=== PATIENT | male | born 1940 | race Caucasian/White ===

== ENCOUNTER 2017-02-09 08:19 | Day surgery (SDC) | payer MEDICARE, OTHER ==
[2017-02-05 11:57] VITALS: BMI 35.6
[~2017-02-09 08:19] MED LIST: LACTATED RINGERS 1,000 ML IV SCH
[2017-02-09] MEDS: PHENYLEPHRINE 10% OPHTH DROPS 5 ML BTL OP ONE ×3 (08:40→09:00)
[2017-02-09] MEDS: CYCLOPENTOLATE 1% OPHTH SOLN 2 ML BTL OP ONE ×3 (08:43→09:03)
[2017-02-09 08:45] VITALS: RESP 16; TEMP 97.3
[2017-02-09] MEDS: FLURBIPROFEN 0.03% OPHTH DROPS 2.5 ML BTL OP ONE ×3 (08:46→09:06)
[2017-02-09] MEDS ORDERED: PROPOFOL 10 MG/ML 20 ML VIAL IV ONE (09:19)
[2017-02-09] MEDS: BUPIVACAINE (PF) 0.75% 5 ML, LIDOCAINE 4% (PF) 5 ML, HYALURONIDASE, HUMAN RECOMB 150 UNIT MISCELLANE ONE ×6 (09:21→09:25)
[2017-02-09] MEDS: TIMOLOL 0.5% OPHTH SOLN (PF) 0.2 ML DROPERETTE OP ONE ×2 (09:21→09:26)
[2017-02-09] MEDS: GENTAMICIN/PREDNISOL AC OPHTH OINT 3.5GM OPHTHALMIC ONE ×2 (09:21→09:26)
[2017-02-09] MEDS ORDERED: HYALURONATE SODIUM INTRAOCULAR 1 EACH SYRINGE (10MG/ML) INTRAOCULA ONE ×2 (09:22→09:26)
[2017-02-09] MEDS ORDERED: BALANCED SALT IRRIG SOLN COMB2 15 ML IRRIG.SOLN INTRAOCULA ONE ×2 (09:22→09:26)
[2017-02-09] MEDS ORDERED: EPINEPHrine (PF) 0.5 ML in BALANCED SALT IRRIG SOLN COMB2 500 ML IRRIGATION ONE (09:22)
--- NOTE | 2017-02-09 09:42 | P.OP ---
Date of Procedure: 02/09/17 Procedure(s) Performed: PREOPERATIVE DIAGNOSIS: Cataract, left eye. POSTOPERATIVE DIAGNOSIS: Cataract, left eye. OPERATION: Phacoemulsification cataract, left eye. DESCRIPTION OF PROCEDURE: The patient was taken to the preoperative holding area. Intravenous Propofol was given so as to bring about adequate sedation. The following mixture was given for local anesthesia: 5 mL of 2% lidocaine, 5 mL of 0.75% Marcaine, and 1 mL of Wydase. Approximately 4 mL was injected in the retrobulbar space of the surgical eye. Additional 1 mL was then directed to the temporal area of the surgical eye. This was performed to allow adequate neurological block of the facial muscles. The patient was revived and then taken into the operative room. The patient was prepped and draped in the usual sterile manner for the operative eye. A lid speculum was put into position. The conjunctiva was resected back from the limbus in the 12 o'clock position. Bleeding was controlled with electrocautery. A #69 blade was then used and a half-thickness scleral incision approximately 1-mm posterior to the limbus was made on bare sclera. This was shelved in the clear cornea using a crescent knife. Next a 15-degree blade was used to make a stab incision at the 3 o' clock position at the corneolimbal interface. Keratome blade was then used and the superior wound was extended into the anterior chamber. Viscoelastic was injected into the anterior chamber and to maintain its form. Next, a cystotome was used and a continuous anterior capsulotomy was made without difficulty. Hydrodissection using a blunt cannula and BSS was performed. Phaco probe was then employed and a groove extending from 12 to 6 o'clock in the lens was created. A Dio wand was used through the stab incision so as to perform a divide and conquer technique. Next an irrigation aspiration probe was utilized and any residual cortex was removed from the eye. Again, viscoelastic was injected into the anterior chamber. An Fredo posterior chamber lens implant was placed in the cartridge and injected into the anterior chamber without difficulty. The SinLoladexey hook was utilized to spin the lens into position and this was again performed without any difficulty. The irrigation and aspiration probe was again employed and any residual viscoelastic was removed from the eye. Then BSS was injected into the limbal stab incision and the anterior chamber re-inflated. The conjunctiva was reapproximated using electrocautery. One drop of 0.25% Timoptic was placed over the corneal along with TobraDex ophthalmic ointment. Two sterile patches and a Gaines eye shield were taped into position. The patient was transported to the recovery room in stable condition. Pathology: none sent Condition: stable Disposition: same day
[2017-02-09 09:58] VITALS: BP 128/79; PULSE 68
== END 2017-02-09 10:26 | disposition home or self-care (01) ==
LOC: OR 08:19
PROVIDERS: ATTEND Ophthalmology
DX: H25.12 Age-related nuclear cataract, left eye (principal); H40.059 Ocular hypertension, unspecified eye; I10 Essential (primary) hypertension; K21.9 Gastro-esophageal reflux disease without esophagitis; E66.01 Morbid (severe) obesity due to excess calories; Z79.82 Long term (current) use of aspirin; Z79.899 Other long term (current) drug therapy; Z88.5 Allergy status to narcotic agent
CPT/HCPCS: 66984; V2632; J2001; J3470; J0171; J2704

== ENCOUNTER → 2017-12-16 | Outpatient (CLI) | payer MEDICARE ==
--- NOTE | 2017-12-17 07:12 | US ---
EXAMINATION TYPE: US prostate transrectal DATE OF EXAM: 12/16/2017 COMPARISON: NONE CLINICAL HISTORY: R97.20 Elevate Prostate. This examination was performed using the transrectal probe. EXAM MEASUREMENTS: Gland Size: 5.7 x 3.6 x 5.6 Volume: 58.64 Predicted PSA: 7.04 Focal hypoechoic nodule is seen within the left prostate gland appearing at mid gland measuring 1.3 x 0.9 x 0.9 cm. This contains internal vascularity and is partially exophytic. Overall the gland is he terogenous containing central zone calcifications and central zone well-circumscribed nodules charact eristic of benign prostatic hyperplasia. IMPRESSION: 1. Moderately suspicious focal hypoechoic nodule within the left lateral prostate gland appearing at the midportion of the gland measuring 1.3 cm. Further evaluation with biopsy or MRI is recommended. 2. Enlarged and heterogenous prostate gland with central zone findings characteristic of benign prost atic hyperplasia.
== END | disposition home or self-care (01) ==
LOC: RADUSMAIN 08:45
PROVIDERS: ATTEND Urology
DX: N40.0 Benign prostatic hyperplasia without lower urinary tract symptoms (principal); N40.2 Nodular prostate without lower urinary tract symptoms
CPT/HCPCS: 76872

== ENCOUNTER → 2018-01-25 | Outpatient (CLI) | payer MEDICARE ==
[2018-01-25 07:33] LABS: Blood Urea Nitrogen 20 mg/dL (9-20)
--- NOTE | 2018-01-25 11:28 | NM ---
EXAMINATION TYPE: NM bone scan whole body DATE OF EXAM: 01/25/2018 COMPARISON: NONE HISTORY: Prostate cancer Delayed whole-body scanning was performed following the injection of 22.0 mCi Tc 99m MDP. Images acq uired 3 hours post injection. FINDINGS: Abnormal uptake is seen involving the lower cervical, thoracic spine, and throughout the lumbar spine . Abnormal uptake involving the feet, ankles, knees and shoulders appears post arthritic. Abnormal uptake involving the mandible suggesting periodontal disease. IMPRESSION: Abnormal uptake involving the lumbar spine is compared to a CT scan of 01/25/2018 appears to be degener ative. 2. Abnormal uptake involving the lower cervical and throughout the thoracic spine is nonspecific with no x-ray correlation available. Recommend x-ray correlation.
--- NOTE | 2018-01-25 11:55 | CT ---
EXAMINATION TYPE: CT abdomen pelvis w con DATE OF EXAM: 01/25/2018 COMPARISON: NONE HISTORY: neoplasm of prostate CT DLP: 1572 mGycm Automated exposure control for dose reduction was used. TECHNIQUE: Helical acquisition of images was performed from the lung bases through the pelvis. CONTRAST: Performed with Oral Contrast and with IV Contrast, patient injected with 100 mL of Isovue 300. FINDINGS: LUNG BASES: No significant abnormality is appreciated. LIVER/GB: Gallbladder is surgically absent. No discrete hepatic lesions or intrahepatic biliary ducta l dilatation. PANCREAS: No pancreatic ductal dilatation. Pancreatic parenchyma is unremarkable. SPLEEN: No significant abnormality is seen. ADRENALS: No nodules or thickening. KIDNEYS: Exophytic left lower pole renal cyst is seen measuring 2.2 cm and focal cortical defect of t he right kidney laterally is likely from prior injury. Nonspecific bilateral perinephric fat strandin g is present. FREE AIR: No free air is visualized. ADENOPATHY: There is a cluster of nonenlarged lymph nodes in the region left periaortic region measu ring up to 7 mm in short axis. Nonenlarged lymph nodes are also seen along the left common iliac cullen n. What appears to be a venous varix rather than an internal chain left iliac lymph node is seen on s eries 3 image 67 and coronal images 78 through 74. REPRODUCTIVE ORGANS: The known prostate carcinoma is not definitively seen on CT. Right seminal vesic le is slightly larger than the left, possible anatomic variation. Central zone calcifications are inc identally noted. URINARY BLADDER: No significant abnormality is seen. OSSEOUS STRUCTURES: Levoscoliosis of the lumbar spine is present. There is grade 1 anterolisthesis o f L4 and L5, likely degenerative in nature. Mild multilevel degenerative changes of the lumbar spine are noted without suspicious osseous lesion. BOWEL: There is a small hiatal hernia present. 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 Numerous sigmoid diverticula are noted without pericolonic fat stranding. Appendix is air-filled and within normal limits. OTHER: Abdominal aorta is of normal course and caliber with minimal calcific atheromatous changes. Th ere is a small fat filled periumbilical hernia seen. IMPRESSION: NO EVIDENCE OF OSSEOUS OR VISCERAL METASTASIS. NO DEFINITIVE EVIDENCE OF ADENOPATHY ALTHOUGH MULTIPLE PROMINENT BUT NONENLARGED PERIAORTIC LYMPH NODES ARE SEEN IN THE LEFT MEASURING UP TO 7 MM.
== END | disposition home or self-care (01) ==
LOC: RADCTMAIN 06:51
PROVIDERS: ATTEND Radiology Radiation Oncology
DX: C61 Malignant neoplasm of prostate (principal); R94.8 Abnormal results of function studies of other organs and systems
CPT/HCPCS: 82565; 84520; 74177; 36415; 78306; A9503; Q9967

== ENCOUNTER → 2018-01-27 | Outpatient (CLI) | payer MEDICARE ==
--- NOTE | 2018-01-27 11:36 | XR ---
EXAMINATION TYPE: XR chest 2V DATE OF EXAM: 01/27/2018 COMPARISON: NONE TECHNIQUE: PA and lateral views submitted. HISTORY: Prostate cancer FINDINGS: The lungs are clear and there is no pneumothorax, pleural effusion, or focal pneumonia. Hypertrophi c changes of the spine. Surgical clips in the abdomen noted. No overt failure. Atherosclerotic change of the aorta. IMPRESSION: 1. No acute process.
[2018-01-27 12:48] LABS: ALT 27 U/L (21-72); AST 26 U/L (17-59); Albumin 3.9 g/dL (3.5-5.0); Alkaline Phosphatase 56 U/L (38-126); Anion Gap 14 mmol/L; Blood Urea Nitrogen 18 mg/dL (9-20); Calcium 9.5 mg/dL (8.4-10.2); Carbon Dioxide 25 mmol/L (22-30); Chloride 105 mmol/L (98-107); Glucose 106 mg/dL (74-99); Potassium 4.4 mmol/L (3.5-5.1); Sodium 144 mmol/L (137-145); Total Bilirubin 0.6 mg/dL (0.2-1.3); Total Protein 6.6 g/dL (6.3-8.2)
[2018-01-27 13:24] LABS: HCT 50.6 % (39.0-53.0); HGB 16.8 gm/dL (13.0-17.5); MCH 32.1 pg (25.0-35.0); MCHC 33.3 g/dL (31.0-37.0); MCV 96.5 fL (80.0-100.0); Platelet Count 224 k/uL (150-450); RBC 5.24 m/uL (4.30-5.90); RDW 13.1 % (11.5-15.5); WBC 7.1 k/uL (3.8-10.6)
[2018-01-27 15:07] LABS: Lymphocytes # (M) 1.92 k/uL (1.0-4.8); Monocytes # (M) 0.71 k/uL (0-1.0); Neutrophils # (M) 4.47 k/uL (1.3-7.7); Neutrophils % (M) 63 %; Nucleated Red Blood Cells 0 /100 WBC (0-0); Polychromasia Present; Total Cells Counted 100
== END | disposition home or self-care (01) ==
LOC: RADXRMAIN 11:13
PROVIDERS: ATTEND Radiology Radiation Oncology
DX: C61 Malignant neoplasm of prostate (principal); Z88.5 Allergy status to narcotic agent
CPT/HCPCS: 71046; 80053; 85025; 85027

== ENCOUNTER → 2018-06-29 | Outpatient (CLI) | payer MEDICARE | END | disposition home or self-care (01) | LOC: LABWHC1 10:29 | PROVIDERS: ATTEND Radiology Radiation Oncology | DX: C61 Malignant neoplasm of prostate (principal); Z00.6 Encounter for examination for normal comparison and control in clinical research program; Z87.891 Personal history of nicotine dependence | CPT/HCPCS: 36415; 84153 ==

== ENCOUNTER → 2018-11-25 | Outpatient (CLI) | payer MEDICARE | END | disposition home or self-care (01) | LOC: LABWHC1 12:40 | PROVIDERS: ATTEND Radiology Radiation Oncology | DX: Z00.6 Encounter for examination for normal comparison and control in clinical research program (principal); C61 Malignant neoplasm of prostate; Z87.891 Personal history of nicotine dependence | CPT/HCPCS: 36415; 84153 ==

== ENCOUNTER → 2019-02-23 | Outpatient (CLI) | payer MEDICARE | LOC: LABWHC1 11:56 | PROVIDERS: ATTEND Radiology Radiation Oncology | DX: C61 Malignant neoplasm of prostate (principal); Z92.3 Personal history of irradiation; Z00.6 Encounter for examination for normal comparison and control in clinical research program; Z87.891 Personal history of nicotine dependence | CPT/HCPCS: 36415; 84153 ==

== ENCOUNTER → 2019-05-26 | Outpatient (CLI) | payer MEDICARE | END | disposition home or self-care (01) | LOC: LABWHC1 11:24 | PROVIDERS: ATTEND Radiology Radiation Oncology | DX: C61 Malignant neoplasm of prostate (principal); Z00.6 Encounter for examination for normal comparison and control in clinical research program; Z92.3 Personal history of irradiation; Z87.891 Personal history of nicotine dependence | CPT/HCPCS: 36415; 84153 ==

== ENCOUNTER → 2019-11-22 | Outpatient (CLI) | payer MEDICARE | END | disposition home or self-care (01) | LOC: LABWHC1 10:21 | PROVIDERS: ATTEND Radiology Radiation Oncology | DX: Z00.6 Encounter for examination for normal comparison and control in clinical research program (principal); C61 Malignant neoplasm of prostate; Z92.3 Personal history of irradiation; Z87.891 Personal history of nicotine dependence | CPT/HCPCS: 36415; 84153 ==

== ENCOUNTER → 2020-05-24 | Outpatient (CLI) | payer MEDICARE | END | disposition home or self-care (01) | LOC: LABWHC1 12:22 | PROVIDERS: ATTEND Radiology Radiation Oncology | DX: Z00.6 Encounter for examination for normal comparison and control in clinical research program (principal); Z08 Encounter for follow-up examination after completed treatment for malignant neoplasm; C61 Malignant neoplasm of prostate; Z85.46 Personal history of malignant neoplasm of prostate; Z92.3 Personal history of irradiation; Z87.891 Personal history of nicotine dependence | CPT/HCPCS: 36415; 84153 ==

== ENCOUNTER → 2020-11-25 | Outpatient (CLI) | payer MEDICARE | END | disposition home or self-care (01) | LOC: LABWHC1 11:38 | PROVIDERS: ATTEND Radiology Radiation Oncology | DX: C61 Malignant neoplasm of prostate (principal); Z85.46 Personal history of malignant neoplasm of prostate; Z92.3 Personal history of irradiation; Z87.891 Personal history of nicotine dependence; Z00.6 Encounter for examination for normal comparison and control in clinical research program; Z08 Encounter for follow-up examination after completed treatment for malignant neoplasm | CPT/HCPCS: 36415; 84153 ==

== ENCOUNTER → 2021-05-28 | Outpatient (CLI) | payer MEDICARE | END | disposition home or self-care (01) | LOC: LABWHC1 11:31 | PROVIDERS: ATTEND Radiology Radiation Oncology | DX: Z08 Encounter for follow-up examination after completed treatment for malignant neoplasm (principal); C61 Malignant neoplasm of prostate; Z92.3 Personal history of irradiation; Z87.891 Personal history of nicotine dependence | CPT/HCPCS: 36415; 84153 ==

== ENCOUNTER 2021-09-05 16:51 | Emergency (ER) | payer MEDICARE ==
[2021-09-05 17:46] VITALS: BP 189/95; PULSE 110; RESP 20; TEMP 98.5
[2021-09-05] MEDS ORDERED: GELATIN SPONGE,ABSORB (SMALL) 1 EACH SPONGE TOPICAL STA (19:33)
[2021-09-05] MEDS ORDERED: traMADol 50 MG STARTER PACK 3 TAB BTL PO STA (20:11)
--- NOTE | 2021-09-05 20:15 | ED ---
Wound/Laceration HPI - General Chief Complaint: Wound/Laceration Stated Complaint: Rt Hand Laceration Time Seen by Provider: 09/05/21 19:15 Source: patient, RN notes reviewed Mode of arrival: ambulatory Limitations: no limitations - History of Present Illness Initial Comments: She is a 81-year-old male presenting to the emergency Department with complaints of an injury to his right 2 fingers. Patient states he was using a mandolin to slice potatoes when he accidentally sliced the tips of his right second and third digits. Bleeding is controlled with active pressure and a bandage. He is not on blood thinners. He states his tetanus is up-to-date. He has no further complaints at this time. - Related Data Home Medications Medication Instructions Recorded Confirmed Aspirin [Adult Low Dose Aspirin EC] 81 mg PO DAILY 02/05/17 02/05/17 Enalapril Maleate [Vasotec] 20 mg PO DAILY 02/05/17 02/05/17 Ergocalciferol (Vitamin D2) 50,000 unit PO DAILY 02/05/17 02/05/17 [Vitamin D2] Multivitamin [Men's Multi-Vitamin] 1 each PO DAILY 02/05/17 02/05/17 Nizatidine [Axid] 150 mg PO DAILY 02/05/17 02/05/17 Allergies Allergy/AdvReac Type Severity Reaction Status Date / Time codeine AdvReac severe Verified 09/05/21 17:46 constipation Review of Systems ROS Statement: Those systems with pertinent positive or pertinent negative responses have been documented in the HPI. ROS Other: All systems not noted in ROS Statement are negative. Past Medical History Past Medical History: Hypertension History of Any Multi-Drug Resistant Organisms: None Reported Past Surgical History: Cholecystectomy Additional Past Surgical History / Comment(s): Bunions; replaced joint in L great toe; benign cyst on parotid gland; R Cataract Past Anesthesia/Blood Transfusion Reactions: No Reported Reaction Smoking Status: Never smoker Past Alcohol Use History: Rare Past Drug Use History: None Reported - Past Family History Mother Family Medical History: No Reported History General Exam - General Exam Comments Initial Comments: GENERAL: Patient is well-developed and well-nourished. Patient is nontoxic and in no acute distress. HEAD: Atraumatic, normocephalic. EYES: Pupils equal round and reactive to light, extraocular movements intact, sclera anicteric, conjunctiva are normal. Eyelids were unremarkable. LUNGS: Unlabored respirations. Breath sounds clear to auscultation bilaterally and equal. No wheezes rales or rhonchi. HEART: Regular rate and rhythm without murmurs, rubs or gallops. MUSCULOSKELETAL: Normal extremities with adequate strength and normal range of motion, no pitting or edema. No clubbing or cyanosis. NEUROLOGICAL: Patient is alert and oriented x 3. SKIN: Warm, Dry, normal turgor, no rashes. Patient has 2 small avulsion injuries, ~0.5cm to the tips of his second and third digits on the right hand. There is small nail involvement on the right middle finger. Bleeding is controlled with pressure in the bandage. Limitations: no limitations Course Vital Signs 09/05/21 17:44 Temperature 98.5 F Pulse Rate 110 H Respiratory 20 Rate Blood Pressure 189/95 O2 Sat by Pulse 98 Oximetry Procedures - Procedures Initial comment: Patient has 2, 0.5 cm small avulsion injuries to the skin at the tips of the second and third digits on the right hand. Patient's hand and wounds were cleaned, Gelfoam and bandages were applied. He tolerated procedure well. Medical Decision Making - Medical Decision Making Patient is a 81-year-old male here with 2 small skin avulsion injuries to the right second and third digits on the right hand secondary to a mandolin. He is up-to-date with his tetanus. He is not on blood thinners. Patient's wound were cleaned, Gelfoam and bandages were applied. There is no active bleeding at discharge. I recommended continuing with elevation and to follow-up with his doctor next week. He is agreeable to this plan of care. He is requesting pain medicine go home with, I did give him a starter pack of tramadol. He is in agreement with this plan of care. Case discussed with Dr. Sloan. Disposition Clinical Impression: Laceration of right index finger, Laceration of right middle finger with damage to nail Disposition: HOME SELF-CARE Condition: Stable Instructions (If sedation given, give patient instructions): Acute Wound Care (ED) Additional Instructions: Please return to the Emergency Department if symptoms worsen or any other concerns. Recommend continued elevation of the right hand to aid in bleeding control. May also apply ice. Leave bandages in place for 24 hours as discussed. Follow up with your doctor next week. Is patient prescribed a controlled substance at d/c from ED?: No Referrals: Kade Laurent MD [Primary Care Provider] - 1-2 days Time of Disposition: 20:15
[2021-09-05] MEDS ORDERED: DIPH,PERTUS(ACELL)TETVAC-LF 0.5 ML VIAL IM ONE (20:19)
== END 2021-09-05 20:58 | disposition home or self-care (01) ==
LOC: EC 16:51
DX: S61.210A Laceration without foreign body of right index finger without damage to nail, initial encounter (principal); S61.212A Laceration without foreign body of right middle finger without damage to nail, initial encounter; I10 Essential (primary) hypertension; Z23 Encounter for immunization; Z79.82 Long term (current) use of aspirin; Z88.5 Allergy status to narcotic agent; Z90.49 Acquired absence of other specified parts of digestive tract; W27.4XXA Contact with kitchen utensil, initial encounter
CPT/HCPCS: 90471; 90715; 99282

== ENCOUNTER → 2021-11-27 | Outpatient (CLI) | payer MEDICARE | END | disposition home or self-care (01) | LOC: LABWHC1 12:18 | PROVIDERS: ATTEND Radiology Radiation Oncology | DX: Z08 Encounter for follow-up examination after completed treatment for malignant neoplasm (principal); Z00.6 Encounter for examination for normal comparison and control in clinical research program; C61 Malignant neoplasm of prostate; Z85.46 Personal history of malignant neoplasm of prostate; Z92.3 Personal history of irradiation; Z87.891 Personal history of nicotine dependence | CPT/HCPCS: 36415; 84153 ==

== ENCOUNTER → 2022-05-27 | Outpatient (CLI) | payer MEDICARE | END | disposition home or self-care (01) | LOC: LABWHC1 10:50 | PROVIDERS: ATTEND Radiology Radiation Oncology | DX: Z08 Encounter for follow-up examination after completed treatment for malignant neoplasm (principal); Z00.6 Encounter for examination for normal comparison and control in clinical research program; C61 Malignant neoplasm of prostate; Z85.46 Personal history of malignant neoplasm of prostate; Z92.3 Personal history of irradiation; Z87.891 Personal history of nicotine dependence | CPT/HCPCS: 36415; 84153 ==

== ENCOUNTER → 2022-09-03 | Outpatient (CLI) | payer MEDICARE ==
--- NOTE | 2022-09-04 18:00 | CA ---
Transthoracic Echo Report Name: Alcides Irving Age: 82 Gender: M : 1940 Exam Date: 09/03/2022 14:07 Exam Location: [place] [facility] Ht (in): 73 Wt (lb): 275 Ordering Physician: Greg Santos MD Attending/Referring Phys: Yesenia Wellington [facility] Telephone Order Supervisor Tanya Delgadillo RDCS Procedure CPT: Indications: R00.1 BRADYCARDIA, UNSPECIFIED Cardiac Hx: Technical Quality: Fair Contrast 1: Total Dose (mL): Contrast 2: Total Dose (mL): MEASUREMENTS (Male / Female) Normal Values 2D ECHO LV Diastolic Diameter PLAX 4.5 cm 4.2 - 5.9 / 3.9 - 5.3 cm LV Systolic Diameter PLAX 3.1 cm IVS Diastolic Thickness 1.4 cm 0.6 - 1.0 / 0.6 - 0.9 cm LVPW Diastolic Thickness 1.2 cm 0.6 - 1.0 / 0.6 - 0.9 cm LV Relative Wall Thickness 0.6 RV Internal Dim ED PLAX 3.3 cm LA Volume 52.8 cm??? 18 - 58 / 22 - 52 cm??? M-MODE Aortic Root Diameter MM 4.4 cm LA Systolic Diameter MM 4.6 cm LA Ao Ratio MM 1.0 AV Cusp Separation MM 2.3 cm DOPPLER AV Peak Velocity 119.5 cm/s AV Peak Gradient 5.7 mmHg AV Mean Velocity 89.8 cm/s AV Mean Gradient 3.4 mmHg AV Velocity Time Integral 26.1 cm LVOT Peak Velocity 92.5 cm/s LVOT Peak Gradient 3.4 mmHg LVOT Velocity Time Integral 19.4 cm MV Area PHT 3.5 cm??? Mitral E Point Velocity 50.2 cm/s Mitral A Point Velocity 98.5 cm/s Mitral E to A Ratio 0.5 MV Deceleration Time 217.2 ms MV E' Velocity 4.9 cm/s Mitral E to MV E' Ratio 10.3 TR Peak Velocity 253.3 cm/s TR Peak Gradient 25.7 mmHg Right Ventricular Systolic Press 30.7 mmHg FINDINGS Left Ventricle Moderately increased left ventricular wall thickness. Normal left ventricular systolic function with no obvious regional wall motion abnormalities. Left ventricular ejection fraction is estimated at 55-60 %. Right Ventricle Normal right ventricular size and function. Right ventricular systolic pressure within normal limits. Right Atrium Normal right atrial size. Left Atrium Normal left atrial size. Mitral Valve Structurally normal mitral valve. Mild mitral annular calcification. Trace to mild mitral regurgitation. Aortic Valve No aortic valve stenosis or regurgitation. Diffuse thickening (sclerosis) of the aortic valve cusps without reduced excursion. Tricuspid Valve Structurally normal tricuspid valve. Mild tricuspid regurgitation. Pulmonic Valve Trace pulmonic regurgitation. Pericardium No pericardial effusion. Aorta Mild aortic dilatation at the level of the sinuses of valsalva (root). CONCLUSIONS Normal LV dimension and systolic function Aortic sclerosis Previewed by: Dr. Anders Oropeza MD (Electronically Signed) Final Date: 04 September 2022 17:59
== END | disposition home or self-care (01) ==
LOC: RADECHMAIN 13:50
PROVIDERS: ATTEND Family Medicine
DX: I35.8 Other nonrheumatic aortic valve disorders (principal)
CPT/HCPCS: 93306

== ENCOUNTER → 2023-04-30 | Outpatient (CLI) | payer MEDICARE ==
[2023-04-30 10:27] LABS: Appearance,Urine Clear (Clear); Bilirubin,Urine Negative (Negative); Blood,Urine Negative (Negative); Color,Urine Yellow; Glucose,Urine (UA) Negative (Negative); Ketones,Urine Negative (Negative); Leukocyte Esterase,Urine Negative (Negative); Nitrite,Urine Negative (Negative); Protein,Urine Negative (Negative); Urobilinogen,Urine <2.0 mg/dL (<2.0)
[2023-04-30 16:49] LABS: ALT 13 U/L (10-49); AST 21 U/L (14-35); Albumin 4.2 d/dL (3.8-4.9); Albumin/Globulin Ratio 1.68 Ratio (1.60-3.17); Alkaline Phosphatase 64 U/L (41-126); BUN/Creat Ratio 18.09 Ratio (12.00-20.00); Blood Urea Nitrogen 19.9 mg/dL (9.0-27.0); Calcium 9.7 mg/dL (8.7-10.3); Carbon Dioxide 25.5 mmol/L (21.6-31.8); Chloride 105 mmol/L (96-109); Chol/HDL Ratio 3.42 Ratio; Globulin 2.5 d/dL (1.6-3.3); Glucose 105 mg/dL (70-110); LDL Cholesterol,Calculated 83.2 mg/dL (0.0-131.0); Potassium 4.5 mmol/L (3.5-5.5); Prostate Specific Antigen <0.14 ng/mL (0.00-6.50); Sodium 142 mmol/L (135-145); Total Bilirubin 0.7 mg/dL (0.3-1.2); Total Protein 6.7 d/dL (6.2-8.2)
[2023-04-30 17:03] LABS: Acanthocytes 2+; Basophils # (A) 0.08 X 10*3/uL (0.00-0.10); Basophils % (A) 0.9 %; Eosinophils # (A) 0.13 X 10*3/uL (0.04-0.35); Eosinophils % (A) 1.5 %; HCT 49.5 % (39.6-50.0); HGB 16.7 d/dL (12.0-15.0); Lymphocytes # (A) 1.05 X 10*3/uL (0.90-5.00); Lymphocytes % (A) 12.1 %; MCH 33.1 pg (27.0-32.0); MCHC 33.7 d/dL (32.0-37.0); MCV 98.2 FL (80.0-97.0); Monocytes % (A) 10.3 %; NRBC Per 100 WBC 0 X 10*3/uL (0.00-0.01); Neutrophils # (A) 6.52 X 10*3/uL (1.80-7.70); Neutrophils % (A) 74.9 %; Platelet Count 188 X 10*3/uL (140-440); RBC 5.04 X 10*6/uL (4.40-5.60); WBC 8.71 X 10*3/uL (4.50-10.00)
== END | disposition home or self-care (01) ==
LOC: LABWHC1 09:20
PROVIDERS: ATTEND Family Medicine
DX: Z08 Encounter for follow-up examination after completed treatment for malignant neoplasm (principal); Z00.6 Encounter for examination for normal comparison and control in clinical research program; I10 Essential (primary) hypertension; R35.1 Nocturia; Z85.46 Personal history of malignant neoplasm of prostate; Z92.3 Personal history of irradiation; Z87.891 Personal history of nicotine dependence
CPT/HCPCS: 36415; 80053; 80061; 81003; 82306; 83036; 84153; 84443; 85025

== ENCOUNTER → 2023-05-31 | Outpatient (CLI) | payer MEDICARE ==
[2023-05-31 20:18] LABS: HCT 48.5 % (39.6-50.0); HGB 16.2 d/dL (13.0-17.0); MCH 32.9 pg (27.0-32.0); MCHC 33.4 d/dL (32.0-37.0); MCV 98.4 FL (80.0-97.0); Mean Platelet Volume 11.9 FL (9.5-12.2); NRBC Per 100 WBC 0 X 10*3/uL (0.00-0.01); Platelet Count 209 X 10*3/uL (140-440); RBC 4.93 X 10*6/uL (4.40-5.60); RDW 13.3 % (11.5-14.5); WBC 5.18 X 10*3/uL (4.50-10.00)
== END | disposition home or self-care (01) ==
LOC: LABWHC1 12:36
PROVIDERS: ATTEND Family Medicine
DX: D75.1 Secondary polycythemia (principal)
CPT/HCPCS: 36415; 85027

== ENCOUNTER → 2023-11-12 | Outpatient (CLI) | payer MEDICARE ==
[2023-11-12 18:26] LABS: HCT 47.3 % (39.6-50.0); HGB 15.8 g/dL (13.0-17.0); MCH 32.2 pg (27.0-32.0); MCHC 33.4 g/dL (32.0-37.0); MCV 96.3 FL (80.0-97.0); Mean Platelet Volume 11.4 FL (9.5-12.2); NRBC Per 100 WBC 0 X 10*3/uL (0.00-0.01); Platelet Count 205 X 10*3/uL (140-440); RBC 4.91 X 10*6/uL (4.40-5.60); RDW 13.3 % (11.5-14.5); WBC 7.91 X 10*3/uL (4.50-10.00)
[2023-11-12 19:01] LABS: BUN/Creat Ratio 22.55 Ratio (12.00-20.00); Blood Urea Nitrogen 24.8 mg/dL (9.0-27.0); Calcium 9.5 mg/dL (8.7-10.3); Carbon Dioxide 25.3 mmol/L (21.6-31.8); Chloride 105 mmol/L (96-109); Glucose 105 mg/dL (70-110); Potassium 4.5 mmol/L (3.5-5.5); Sodium 142 mmol/L (135-145)
== END | disposition home or self-care (01) ==
LOC: LABWHC1 12:50
PROVIDERS: ATTEND Family Medicine
DX: I10 Essential (primary) hypertension (principal); E55.9 Vitamin D deficiency, unspecified; R73.03 Prediabetes
CPT/HCPCS: 36415; 80048; 82306; 83036; 85027

== ENCOUNTER → 2024-05-15 | Outpatient (CLI) | payer MEDICARE ==
[2024-05-15 16:22] LABS: Basophils # (A) 0.08 X 10*3/uL (0.00-0.10); Basophils % (A) 1.3 %; Eosinophils # (A) 0.19 X 10*3/uL (0.04-0.35); Eosinophils % (A) 3.1 %; HCT 48.9 % (39.6-50.0); HGB 16.3 g/dL (13.0-17.0); Lymphocytes % (A) 21.5 %; MCH 33.3 pg (27.0-32.0); MCHC 33.3 g/dL (32.0-37.0); MCV 99.8 FL (80.0-97.0); Mean Platelet Volume 11.5 FL (9.5-12.2); Monocytes # (A) 0.66 X 10*3/uL (0.20-1.00); Monocytes % (A) 10.9 %; NRBC Per 100 WBC 0 X 10*3/uL (0.00-0.01); Neutrophils # (A) 3.79 X 10*3/uL (1.80-7.70); Neutrophils % (A) 62.7 %; Platelet Count 182 X 10*3/uL (140-440); RDW 13.4 % (11.5-14.5); WBC 6.05 X 10*3/uL (4.50-10.00)
[2024-05-15 19:29] LABS: Chol/HDL Ratio 3.53 Ratio; LDL Cholesterol,Calculated 91.5 mg/dL (0.0-131.0)
[2024-05-15 19:36] LABS: ALT 18 U/L (10-49); AST 25 U/L (14-35); Albumin 4.1 g/dL (3.8-4.9); Albumin/Globulin Ratio 1.86 Ratio (1.60-3.17); Alkaline Phosphatase 51 U/L (41-126); Blood Urea Nitrogen 22.3 mg/dL (9.0-27.0); Carbon Dioxide 20.4 mmol/L (21.6-31.8); Chloride 107 mmol/L (96-109); Globulin 2.2 g/dL (1.6-3.3); Glucose 99 mg/dL (70-110); Potassium 4.4 mmol/L (3.5-5.5); Sodium 141 mmol/L (135-145); Total Bilirubin 0.6 mg/dL (0.3-1.2); Total Protein 6.3 g/dL (6.2-8.2)
== END | disposition home or self-care (01) ==
LOC: LABWHC1 08:55
PROVIDERS: ATTEND Family Medicine
DX: I10 Essential (primary) hypertension (principal)
CPT/HCPCS: 36415; 80053; 80061; 83036; 84443; 85025

== ENCOUNTER → 2024-06-02 | Outpatient (CLI) | payer MEDICARE | END | disposition home or self-care (01) | LOC: LABWHC1 10:27 | PROVIDERS: ATTEND Radiology Radiation Oncology | DX: Z08 Encounter for follow-up examination after completed treatment for malignant neoplasm | CPT/HCPCS: 36415; 84153 ==

== ENCOUNTER → 2024-11-17 | Outpatient (CLI) | payer MEDICARE ==
[2024-11-17 15:42] LABS: Basophils # (A) 0.09 X 10*3/uL (0.00-0.10); Basophils % (A) 1.4 %; Eosinophils % (A) 3.2 %; HCT 49.3 % (39.6-50.0); HGB 16.4 g/dL (13.0-17.0); Lymphocytes # (A) 1.49 X 10*3/uL (0.90-5.00); Lymphocytes % (A) 23.6 %; MCHC 33.3 g/dL (32.0-37.0); MCV 96.1 FL (80.0-97.0); Mean Platelet Volume 11.2 FL (9.5-12.2); Monocytes # (A) 0.82 X 10*3/uL (0.20-1.00); NRBC Per 100 WBC 0 X 10*3/uL (0.00-0.01); Neutrophils # (A) 3.69 X 10*3/uL (1.80-7.70); Neutrophils % (A) 58.5 %; Platelet Count 233 X 10*3/uL (140-440); RBC 5.13 X 10*6/uL (4.40-5.60); RDW 13.2 % (11.5-14.5); WBC 6.31 X 10*3/uL (4.50-10.00)
[2024-11-17 16:30] LABS: ALT 19 U/L (10-49); AST 26 U/L (14-35); Calcium 9.2 mg/dL (8.7-10.3); Carbon Dioxide 22.5 mmol/L (21.6-31.8); Chloride 107 mmol/L (96-109); Chol/HDL Ratio 3.57 Ratio; Glucose 105 mg/dL (70-110); LDL Cholesterol,Calculated 112.4 mg/dL (0.0-131.0); Potassium 4.5 mmol/L (3.5-5.5); Sodium 142 mmol/L (135-145); VLDL Calculation 16.52 mg/dL (5.00-40.00)
== END | disposition home or self-care (01) ==
LOC: LABWHC1 10:28
PROVIDERS: ATTEND Family Medicine
DX: I10 Essential (primary) hypertension (principal); E55.9 Vitamin D deficiency, unspecified; E66.9 Obesity, unspecified; R73.03 Prediabetes
CPT/HCPCS: 36415; 80048; 80061; 82306; 83036; 84443; 84450; 84460; 85025